=== PATIENT | female | born 1970 | race Caucasian/White ===

== ENCOUNTER 2017-05-17 07:28 | Day surgery (SDC) | payer OTHER ==
[~2017-05-17 07:28] MED LIST: BRIMONIDINE 0.2% OPHTH DROPS 5 ML OPTH ONE; BSS/LIDOCAINE/EPINEPHRINE 1 ML SYRINGE IO ONE; CHONDR SULF/HYALURONATE SYRINGE IO ONE; EPINEPHrine 1 MG/ML AMP IVP ONE; PHENYLEPHRINE 2.5% OPHTH 2 ML DROPS ONE; PROPARACAINE 0.5% OPHTH DROPS 15 ML OPTH ONE; TIMOLOL 0.5% OPHTH DROPS OPTH ONE; TRIAMCIN/MOXIFLOX/VANCO 1 ML VIAL IO ONE
[2017-05-17 07:52] LABS: HCG UR QUAL NEGATIVE
[2017-05-17] MEDS ORDERED: KETOROLAC 0.45% OPHTH DROPS OPTH ONE (08:00)
[2017-05-17] MEDS ORDERED: CYCLOPENTOLATE 1% OPHTH DROPS 2 ML OPTH ONE (08:00)
[2017-05-17] MEDS ORDERED: PROPARACAINE 0.5% OPHTH DROPS 15 ML OPTH ONE ×2 (08:00→08:27)
[2017-05-17] MEDS ORDERED: PHENYLEPHRINE 2.5% OPHTH 2 ML DROPS OPTH ONE (08:00)
[2017-05-17] MEDS ORDERED: LACTATED RINGERS 500 ML IV ONE (08:01)
[2017-05-17] MEDS ORDERED: EPINEPHrine 1 MG/ML AMP IVP ONE (08:26)
[2017-05-17] MEDS ORDERED: BRIMONIDINE 0.2% OPHTH DROPS 5 ML OPTH ONE (08:26)
[2017-05-17] MEDS ORDERED: levoFLOXacin 0.5% OPHTH DROPS 5 ML RIGHTEYE ONE (08:27)
[2017-05-17] MEDS ORDERED: TRIAMCIN/MOXIFLOX/VANCO 1 ML VIAL IO ONE ×2 (08:27)
[2017-05-17] MEDS ORDERED: TIMOLOL 0.5% OPHTH DROPS OPTH ONE (08:27)
[2017-05-17] MEDS ORDERED: CHONDR SULF/HYALURONATE SYRINGE IO ONE (08:27)
[2017-05-17] MEDS ORDERED: BSS/LIDOCAINE/EPINEPHRINE 1 ML SYRINGE IO ONE ×2 (08:27)
[2017-05-17] MEDS ORDERED: MIDAZOLAM 2 MG/2 ML VIAL IVP ONE (08:30)
[2017-05-17 08:59] VITALS: BP 143/82
--- NOTE | 2017-05-21 07:35 | OPERATIVE REPORT ---
DATE OF SURGERY: 05/17/2017 00:00:00 PREOPERATIVE DIAGNOSIS: Visually significant cataract, right eye; cataract surgery was performed on the left eye on 11 May 2016. POSTOPERATIVE DIAGNOSIS: Visually significant cataract, right eye; cataract surgery was performed on the left eye on 11 May 2016. PROCEDURE: Phacoemulsification and posterior chamber intraorbital lens implant, right eye. SURGEON: Lalit Cassidy MD ANESTHESIA: Monitored anesthesia care. COMPLICATIONS: None. OPERATIVE INDICATIONS: This is a 46-year-old woman with progressive vision loss in the right eye due to 2+ posterior subcapsular cataract. Best corrected visual acuity was 20/50 in the right eye. INDICATIONS FOR SURGERY: Overall decrease in vision, difficulty seeing words on a computer screen, d ifficulty reading; difficulty seeing words, closed captions, or game scores on TV. Difficulty seeing street signs, difficulty driving in low light or at night, difficulty driving at night because of he adlights from other vehicles, difficulty with glare of bright lights in any situation, difficulty tra cking a golf ball, and decreased acuity with firearms. She was consented at length concerning the ris ks and benefits of cataract surgery, after which she expressed a desire to proceed with surgery. OPERATIVE PROCEDURE: The patient was taken into OR #2 and placed under monitored anesthesia care. A surgical time-out was conducted, confirming the correct patient, correct procedure, and correct surgi dale site. She was given topical anesthesia and then prepped with baby shampoo only because she has an ALLERGY TO BETADINE. She was also given pre- and postoperative drops of Quixin to help sterilize th e eye. The eye was entered at the 12- and 9-o'clock positions. Intracameral shugarcaine was injected into th e anterior chamber, followed by Viscoat. A continuous tear curvilinear capsulorrhexis was performed. The nucleus was hydrodissected and phacoemulsified. The cortex was evacuated using automated and infu viola aspiration. Provisc was injected into the capsular bag, and a 22.0-diopter intraocular lens was inserted into the bag. Approximately 0.7 mL of a mixture of triamcinolone, moxifloxacin, and vancomy acosta was injected subconjunctivally in the superior quadrant for infection and inflammation prophylaxi s. I/A was used to evacuate the viscoelastic materials. The eye was inflated to physiologic pressur e using a balanced salt solution and found to be watertight. The patient was taken from the operating room in good condition and given postoperative instructions. JOB #: [id number] EXT JOB #:[id number]
== END 2017-05-17 07:29 | disposition home or self-care (01) ==
LOC: SDS 07:28
PROVIDERS: ATTEND Ophthalmology
PROC: 08RJ3JZ Replacement of Right Lens with Synthetic Substitute, Percutaneous Approach (ICD-10-PCS; principal; 2017-05-17 08:30)
DX: H25.041 Posterior subcapsular polar age-related cataract, right eye (principal); I10 Essential (primary) hypertension; E03.9 Hypothyroidism, unspecified; Z82.49 Family history of ischemic heart disease and other diseases of the circulatory system; Z83.3 Family history of diabetes mellitus; Z98.42 Cataract extraction status, left eye; Z96.1 Presence of intraocular lens
CPT/HCPCS: 66984; 81025; A9270; V2632

== ENCOUNTER 2018-01-22 16:50 | Emergency (ER) | payer OTHER ==
[2018-01-22] MEDS ORDERED: oxyCOD/ACETAMIN 5 MG/325 MG TABLET PO STA (17:38)
--- NOTE | 2018-01-22 18:11 | ED Physician Documentation ---
History of Present Illness - Stated complaint Stated Complaint: FOOT PAIN UP TO KNEE - Chief complaint Chief Complaint: Ext Problem - Additonal information Additional information: in heels this AM rolled her foot pain primarily to mid foot radiates up her leg no had neck injury no blood thinners denies preg Review of Systems : denies: Now EGA Musculoskeletal: reports: Pain with weight bearing PD PAST MEDICAL HISTORY - Past Medical History Past Medical History: Yes Cardiovascular: Hypertension Respiratory: None Endocrine/Autoimmune: HyPOthyroidism GI: GERD : None HEENT: None Psych: None Musculoskeletal: None Derm: None - Past Surgical History 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 - Present Medications Home Medications: Ambulatory Orders Medication Instructions Recorded Confirmed Lisinopril 10 mg PO DAILY 05/11/16 01/22/18 Ibuprofen [Motrin] 400 mg PO Q6H PRN #20 tablet 01/22/18 Oxycodone HCl/Acetaminophen 1 each PO Q6HR PRN #6 tablet 01/22/18 [Percocet 5-325 mg Tablet] - Allergies Allergies/Adverse Reactions: Allergies Allergy/AdvReac Type Severity Reaction Status Date / Time No Known Drug Allergies Allergy Verified 01/22/18 17:11 - Social History Does the pt smoke?: No Smoking Status: Never smoker Does the pt drink ETOH?: No Does the pt have substance abuse?: No - Immunizations Immunizations are current?: Yes PD ED PE NORMAL - Vitals Vital signs reviewed: Yes - Free text exam Free text exam: RLE - knee NT, tib fib NT, ankle NT, achilles intact and NT, heel NT, TTP with swelling to mid foot luis base 2nd and 3rd MT, no base of 5th TTP, MSV intact Results - Vitals Vitals: Vital Signs - 24 hr 01/22/18 17:07 Temperature 36.2 C L Heart Rate 88 Respiratory 18 Rate Blood Pressure 136/79 H O2 Saturation 95 Oxygen O2 Source Room air - Rads (name of study) foot Radiology: See rad report (no acute) ankle Radiology: See rad report (no acute) PD MEDICAL DECISION MAKING - ED course ED course: no fx or dislocation seen on xray but mechanism and exam make me concerned for a Lis Franc type ST injury will have pt in M[place] and on crutches non weight bearing and refer to ortho for further eval and perhaps consideration of MRI if sx persist Departure - Departure Disposition: Home, Self Care Clinical Impression: Right foot sprain Qualifiers: Encounter type: initial encounter Qualified Code(s): S93.601A - Unspecified sprain of right foot, initial encounter Condition: Good Instructions: ED Sprain Foot, ED Crutch Walking Follow-Up: ALAINA TIAN [Primary Care Provider] - [facility] [Provider Group] Prescriptions: Oxycodone HCl/Acetaminophen [Percocet 5-325 mg Tablet] 1 each PO Q6HR PRN #6 tablet PRN Reason: Severe Pain Ibuprofen [Motrin] 400 mg PO Q6H PRN #20 tablet PRN Reason: Pain Comments: The xrays do not show any fractures or displaced bones But your exam has me concerned for a ligament injury called a LisFranc injury. I recommend that you not walk on that foot - use the crutches we gave you and do not bear weight. Then i have referred you to orthopedics for further evaluation and perhaps a MRI if the symptoms persist. Ice elevation and the MÓINCA wrap will help the swelling and pain. You can take motrin for mild to moderate pain. And I wrote for a small number of percocet for you to take as needed for severe pain - please try and limit your use of narcotics as much as possible Forms: Activity restrictions
--- NOTE | 2018-01-22 18:29 | XRAY Preliminary Report ---
Exam: XR FOOT 3 VIEW RT IMPRESSION: No fracture or subluxation. [facility] SITE ID: [id number]
--- NOTE | 2018-01-22 18:29 | XRAY Report ---
EXAM: RIGHT FOOT RADIOGRAPHY EXAM DATE: 01/22/2018 05:45 PM. CLINICAL HISTORY: High heels injury. Inversion injury. COMPARISON: None. TECHNIQUE: 3 views. FINDINGS: Bones: Normal. No fractures or bone lesions. Joints: Joint space and alignment appears satisfactory. Soft Tissues: There is a small plantar calcaneal spur. IMPRESSION: No fracture or subluxation. [facility] Referring Provider Line: [phone] SITE ID: [id number]
--- NOTE | 2018-01-22 18:30 | XRAY Report ---
EXAM: RIGHT ANKLE RADIOGRAPHY EXAM DATE: 01/22/2018 05:42 PM. CLINICAL HISTORY: Inversion injury to ankle. COMPARISON: None. TECHNIQUE: 3 views. FINDINGS: Bones: Normal. No fractures or bone lesions. Joints: Normal. No effusion. No subluxations. The ankle mortise is normally aligned. Soft Tissues: There is a small plantar calcaneal spur. There is lateral ankle soft tissue swelling. IMPRESSION: No fracture or subluxation. [facility] Referring Provider Line: [phone] SITE ID: [id number]
--- NOTE | 2018-01-22 18:30 | XRAY Preliminary Report ---
Exam: XR ANKLE 3 VIEW RT IMPRESSION: No fracture or subluxation. [facility] SITE ID: [id number]
[2018-01-22 19:27] VITALS: BP 128/74
== END 2018-01-22 19:26 | disposition home or self-care (01) ==
LOC: ED 16:50
DX: S93.601A Unspecified sprain of right foot, initial encounter (principal); W19.XXXA Unspecified fall, initial encounter; Y92.89 Other specified places as the place of occurrence of the external cause; I10 Essential (primary) hypertension; E03.9 Hypothyroidism, unspecified
CPT/HCPCS: 73610; 73630; 99283; A9270

== ENCOUNTER 2018-11-05 01:02 | Outpatient (CLI) | payer OTHER | END 2018-11-05 01:03 | disposition critical access hospital (66) | LOC: EMS 01:02 | PROVIDERS: ATTEND Surgery | DX: R10.9 Unspecified abdominal pain (principal); R11.0 Nausea; R61 Generalized hyperhidrosis | CPT/HCPCS: A0425; A0427 ==

== ENCOUNTER 2018-11-05 01:24 | Emergency (ER) | payer OTHER ==
--- NOTE | 2018-11-05 01:31 | ED Physician Documentation ---
PD HPI ABD PAIN - Stated complaint Stated Complaint: ABD PAIN - History obtained from History obtained from: Patient, Family, EMS - History of Present Illness Timing - onset: Enter time (2299), Today Timing - duration: Hours Timing - details: Abrupt onset, Still present Pain level max: 10 Pain level now: 2 Quality: Sharp, Pain Location: Epigastric, LLQ Radiation: Left flank Improved by: BM Worsened by: Palpation Associated symptoms: Nausea, Diarrhea, Near syncope / syncope, Other (diaphoresis) Similar symptoms before: Has not had sx before Recently seen: Not recently seen - Additional information Additional information: Previously well 48-year-old female went out to dinner last night with her to a restaurant serving spicy food. She states that they went to bed about 10:30 at night about 11:00 at night she woke up with epigastric pain and diaphoresis. She had some pain in her left lower quadrant associated with this as well. She felt that this was from something that she ate and felt that she might improve with the use of a bowel movement. She went to the bathroom she was unable to produce any stool she became diaphoretic and describes some numbness to her extremities. She had some improvement her pain was able to get back to bed for about 15 minutes and had recurrence of her pain. She was eventually able to get to the bathroom and have a bowel movement and felt that following that about 20 minutes after she was having some improvement in her pain. She had dramatic diaphoresis associated with this and numbness to her upper and lower extremities and she became concerned that she may be having a heart attack and called the ambulance. At the time the medics arrived her pain was improved. Review of Systems Constitutional: reports: Sweats. denies: Fever, Chills Eyes: denies: Decreased vision Ears: denies: Ear pain Nose: denies: Rhinorrhea / runny nose, Congestion Throat: denies: Sore throat Cardiac: denies: Chest pain / pressure, Palpitations, Pedal edema, Calf pain Respiratory: denies: Dyspnea, Cough GI: reports: Abdominal Pain, Nausea, Diarrhea : denies: Dysuria, Frequency Skin: denies: Rash Musculoskeletal: denies: Neck pain, Back pain, Extremity pain Neurologic: denies: Generalized weakness, Focal weakness, Numbness PD PAST MEDICAL HISTORY - Past Medical History Cardiovascular: Hypertension Respiratory: None Endocrine/Autoimmune: HyPOthyroidism GI: GERD : None HEENT: None Psych: None Musculoskeletal: None Derm: None - Past Surgical History 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 - Present Medications Home Medications: Ambulatory Orders Medication Instructions Recorded Confirmed RX: Lisinopril 10 mg PO DAILY 05/11/16 01/22/18 Ibuprofen [Motrin] 400 mg PO Q6H PRN #20 tablet 01/22/18 RX: HYDROcod/ACETAM 5/325 [Karthaus 1 ea PO Q6H PRN #8 tablet 01/22/18 5/325] - Allergies Allergies/Adverse Reactions: Allergies Allergy/AdvReac Type Severity Reaction Status Date / Time No Known Drug Allergies Allergy Verified 11/05/18 01:34 - Social History Does the pt smoke?: No Smoking Status: Never smoker Does the pt drink ETOH?: No Does the pt have substance abuse?: No - Immunizations Immunizations are current?: Yes PD ED PE NORMAL - Vitals Vital signs reviewed: Yes (hypertensive ) - General General: Alert and oriented X 3, No acute distress, Well developed/nourished - HEENT HEENT: Atraumatic, PERRL, EOMI - Neck Neck: Supple, no meningeal sign, No bony TTP, No adenopathy - Cardiac Cardiac: RRR, No murmur - Respiratory Respiratory: No respiratory distress, Clear bilaterally - Abdomen Abdomen: Soft, Other (mild left lower quadrant tenderness without gaurding or rebound ) - Back Back: No CVA TTP, No spinal TTP - Derm Derm: Normal color, Warm and dry, No rash - Extremities Extremities: No deformity, No edema, No calf tenderness / cord - Neuro Neuro: Alert and oriented X 3, mother superior 2-12 intact, No motor deficit, No sensory deficit, Normal speech Eye Opening: Spontaneous Motor: Obeys Commands Verbal: Oriented GCS Score: 15 - Psych Psych: Normal mood, Normal affect Results - Vitals Vitals: Vital Signs - 24 hr 11/05/18 11/05/18 11/05/18 01:31 01:48 02:13 Temperature 36.5 C Heart Rate 80 82 77 Respiratory 18 18 18 Rate Blood Pressure 144/110 H 141/83 H 104/60 O2 Saturation 97 100 97 11/05/18 11/05/18 11/05/18 02:32 02:57 03:06 Temperature Heart Rate 83 80 Respiratory 17 17 17 Rate Blood Pressure 111/72 124/74 O2 Saturation 96 98 Oxygen O2 Source Room air - EKG (time done) 0131 Rate: Rate (enter#) (73) Rhythm: NSR Intervals: RBBB Compare to prior EKG: Old EKG unavailable Computer interpretation: Agree with computer - Labs Labs: Laboratory Tests 11/05/18 11/05/18 11/05/18 01:36 01:36 01:36 WBC 7.1 RBC 4.47 Hgb 14.0 Hct 39.9 MCV 89.1 MCH 31.3 H MCHC 35.1 RDW 13.0 Plt Count 141 MPV 9.1 Neut # (Auto) 5.5 Lymph # (Auto) 1.1 L Summit # (Auto) 0.3 Eos # (Auto) 0.1 Baso # (Auto) 0.1 Absolute Nucleated RBC 0.00 Nucleated RBC % 0.0 Sodium 136 Potassium 3.2 L Chloride 103 Carbon Dioxide 24 Anion Gap 9.0 BUN 14 Creatinine 0.5 Estimated GFR (MDRD) 133 Glucose 138 H Calcium 8.7 Total Bilirubin 0.7 AST 67 H ALT 101 H Alkaline Phosphatase 71 Troponin I < 0.04 Total Protein 7.5 Albumin 4.0 Globulin 3.5 Albumin/Globulin Ratio 1.1 Lipase 29 Urine Color Urine Clarity Urine pH Ur Specific Comins Urine Protein Urine Glucose (UA) Urine Ketones Urine Occult Blood Urine Nitrite Urine Bilirubin Urine Urobilinogen Ur Leukocyte Esterase Ur Microscopic Review Urine Culture Comments Urine HCG, Qual 11/05/18 02:44 WBC RBC Hgb Hct MCV MCH MCHC RDW Plt Count MPV Neut # (Auto) Lymph # (Auto) Summit # (Auto) Eos # (Auto) Baso # (Auto) Absolute Nucleated RBC Nucleated RBC % Sodium Potassium Chloride Carbon Dioxide Anion Gap BUN Creatinine Estimated GFR (MDRD) Glucose Calcium Total Bilirubin AST ALT Alkaline Phosphatase Troponin I Total Protein Albumin Globulin Albumin/Globulin Ratio Lipase Urine Color DARK YELLOW Urine Clarity CLEAR Urine pH 5.5 Ur Specific Comins 1.015 Urine Protein NEGATIVE Urine Glucose (UA) NEGATIVE Urine Ketones 15 H Urine Occult Blood NEGATIVE Urine Nitrite NEGATIVE Urine Bilirubin NEGATIVE Urine Urobilinogen 0.2 (NORMAL) Ur Leukocyte Esterase NEGATIVE Ur Microscopic Review NOT INDICATED Urine Culture Comments NOT INDICATED Urine HCG, Qual NEGATIVE - Rads (name of study) CT abd/pel without Radiology: Prelim report reviewed (Impression: 1. No urolithiasis seen.2 Fatty liver and spleen megaly. 3 Right ovarian cyst measuring 5.5 cm. 4. No diverticulitis or appendicitis identified.), EMP read indepedently, See rad report Procedures - Bedside sono Bedside sono by EMP: With use of bedside ultrasound the left kidney is imaged it is sonographically nontender and there is questionable evidence of hydronephrosis. PD MEDICAL DECISION MAKING - ED course Complexity details: reviewed old records, reviewed results, re-evaluated patient, considered differential, d/w patient, d/w family ED course: 48-year-old female with a dramatic episode of severe pain associated with diaphoresis and nausea has had a resolution of her pain and undulation of her pain. She did eat at a restaurant with extra spices and the suspicion is she did not tolerate this on her intestine. Expectation is spontaneous and complete resolution. Departure - Departure Disposition: 01 Home, Self Care Clinical Impression: Gastroenteritis Condition: Stable Instructions: ED Gastroenteritis Non Infec Follow-Up: ALAINA TIAN [Primary Care Provider] - Discharge Date/Time: 11/05/18 03:18
[2018-11-05 01:46] LABS: BASOPHILS # (AUTO) 0.1 10^3/uL (0.0-0.1); BASOPHILS % (AUTO) 0.8 %; EOSINOPHILS # (AUTO) 0.1 10^3/uL (0.0-0.7); EOSINOPHILS % (AUTO) 1.8 %; LYMPHOCYTES # (AUTO) 1.1 10^3/uL (1.5-3.5); MEAN CORPUSCULAR HEMOGLOBIN 31.3 pg (27.0-31.0); MEAN CORPUSCULAR HGB CONC 35.1 g/dL (32.0-36.0); MEAN CORPUSCULAR VOLUME 89.1 fL (81.0-99.0); MEAN PLATELET VOLUME 9.1 fL (7.9-10.8); MONOCYTES # (AUTO) 0.3 10^3/uL (0.0-1.0); MONOCYTES % (AUTO) 3.6 %; NEUTROPHILS # (AUTO) 5.5 10^3/uL (1.5-6.6); NEUTROPHILS % (AUTO) 77.8 %; PLT - PLATELET COUNT 141 10^3/uL (130-450); RED BLOOD COUNT 4.47 10^6/uL (4.20-5.40); WHITE BLOOD COUNT 7.1 x10^3/uL (4.8-10.8)
[2018-11-05 01:55] LABS: ALBUMIN/GLOBULIN RATIO 1.1 (1.0-2.2); BILIRUBIN,TOTAL 0.7 mg/dL (0.2-1.0); CALCIUM 8.7 mg/dL (8.5-10.3); CREATININE 0.5 mg/dL (0.4-1.0); TOTAL PROTEIN 7.5 g/dL (6.7-8.2)
--- NOTE | 2018-11-05 02:27 | CT Report ---
Reason: llq pain Procedure Date: 11/05/2018 Accession Number: [id number] / [id number] Procedure: CT - Abdomen/Pelvis W/O CPT Code: FULL RESULT: EXAM: CT ABDOMEN AND PELVIS (CT KUB) EXAM DATE: 11/05/2018 02:13 AM. CLINICAL HISTORY: Left-sided pain. COMPARISONS: None. TECHNIQUE: Routine axial helical CT imaging was performed through the abdomen and pelvis without IV contrast. Reconstructions: Coronal and sagittal. In accordance with CT protocol optimization, one or more of the following dose reduction techniques were utilized for this exam: automated exposure control, adjustment of mA and/or KV based on patient size, or use of iterative reconstructive technique. FINDINGS: Lung Bases: Unremarkable. Right Kidney/Ureter: No stones, hydronephrosis, or hydroureter. No perinephric fat stranding. Left Kidney/Ureter: No stones, hydronephrosis, or hydroureter. No perinephric fat stranding. Other Solid Organs: Fatty liver. Splenomegaly measuring 16.5 cm. Pancreas and adrenals are unremarkable. Gallbladder/Bile Ducts: Unremarkable. Peritoneal Cavity: No bowel obstruction seen. No diverticulitis. No free air or free fluid. No lymphadenopathy. Appendix appears normal. Pelvic Organs: Right ovarian cyst measuring 5.5 cm. Visualized pelvic organs are otherwise unremarkable. Vasculature: Unremarkable. Other: Degenerative changes in the spine with grade 1 degenerative spondylolisthesis at L5-S1. Spinal stenosis. 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 IMPRESSION: 1. No urolithiasis seen. 2. Fatty liver and splenomegaly. 3. Right ovarian cyst measuring 5.5 cm. 4. No diverticulitis or appendicitis identified. [facility]
[2018-11-05] MEDS ORDERED: POTASSIUM BICARB 25 MEQ TABLET PO STA (02:29)
[2018-11-05 02:48] LABS: BILIRUBIN,URINE NEGATIVE (NEGATIVE); GLUCOSE, URINE (UA) NEGATIVE (NEGATIVE); KETONES,URINE (UA) 15 mg/dL (NEGATIVE); LEUKOCYTE ESTERASE, URINE NEGATIVE (NEGATIVE); NITRITE,URINE NEGATIVE (NEGATIVE); OCCULT BLOOD,URINE NEGATIVE (NEGATIVE); PH,URINE 5.5 PH (5.0-7.5); PROTEIN,URINE NEGATIVE (NEGATIVE); UROBILINOGEN,URINE 0.2 (NORMAL) E.U./dL (NORMAL)
[2018-11-05 02:50] LABS: CLARITY,URINE CLEAR (CLEAR)
[2018-11-05 02:53] LABS: HCG UR QUAL NEGATIVE
[2018-11-05 02:57] VITALS: BP 124/74
[2018-11-05] MEDS ORDERED: ONDANSETRON ODT 4 MG Prepack 2 TL PRN (03:00)
== END 2018-11-05 03:18 | disposition home or self-care (01) ==
LOC: EDUNIT# → ED 01:24
DX: K52.9 Noninfective gastroenteritis and colitis, unspecified (principal); I45.10 Unspecified right bundle-branch block; I10 Essential (primary) hypertension; E03.9 Hypothyroidism, unspecified
CPT/HCPCS: 36415; 74176; 80053; 81003; 81025; 83690; 84484; 85025; 93005; 99283; 99284; A9270; 81001; 87086

== ENCOUNTER 2020-07-30 11:26 | Outpatient (CLI) | payer OTHER ==
[2020-07-30 12:21] VITALS: BP 133/88
--- NOTE | 2020-07-30 12:21 | SLEEP CARE CONSULTATION ---
Information from patient questionnaire entered by Gio Pacheco. I have reviewed and concur with the information entered by Gio Pacheco. This document represents the service I personally performed and the decisions made by me, Ophelia Retana ARNP. History of Present Illness Service Date and Time: 07/30/2020 1126 Reason for Visit: New patient Chief Complaint: reports: Unrefreshed sleep, Snoring, Excessive daytime sleepiness, Fatigue, Frequent awakenings at night (Fitbit showing awake a lot), Other (Bariatric surgeon wanted this: for unrefreshed sleep and fatigue). denies: Insomnia, Observed pauses in breathing Date of Onset: 10 plus years Usual bedtime: 10:00 PM; weekends varies 11PM-1AM Time it takes to fall asleep: seconds Snores at night: Yes Observed to quit breathing while asleep: No Sleeps alone due to snoring: No Number of times waking at night: 2-3 Reasons for waking at night: reports: Bathroom, Other (Just turning over sometimes). denies: Choking, Snoring, Gasping for air Toss, Turn, or Twitch while sleeping: Yes Recalls having dreams: Yes Usually gets out of bed at: 6 AM; weekends 1030 or 1100 Feels refreshed in the morning: Yes (sometimes; 1/4 of time) Morning headache: Yes (sometimes; sinus related 2 a month) Sleepy or fatigued during the day: Yes (sometimes) Ever fallen asleep while driving: No Takes day naps: Yes (2 a month, 2-3 hours) Dreams during day naps: Yes Prior sleep studies: No (In [place], [place], about 20 years ago) Additional HPI information: I had the pleasure of seeing JOSH PABLO today regarding the possibility of her having a sleep disorder. Her current complaints are unrefreshed sleep and fatigue. She had a sleep study over 20 years ago but she never heard anything back from it and was never told she had sleep apnea. She was recently diagnosed with diabetes. She is endeavouring to have bariatric surgery and was sent here for evaluation of sleep disordered breathing prior to surgery. She is 45 pounds heavier since her last study. She does snore loudly according to her but he has not observed pauses in breathing. She wakes up 2-3 times a night. She states a quarter of the time she will wake up rested but otherwise has unrefreshed sleep and daily fatigue. She states both of her parents snore but neither has been diagnosed with sleep apnea. - Parasomnia Symptoms Ever been unable to move upon waking from sleep: No Walks in sleep: No Talks in sleep: No Ever acted out dreams in sleep: No Ever felt weak in the knees when startled or emotional: Yes Bothered by creepy, crawly, restless sensations in legs: No Problems with memory or concentration: Yes (both) Subjective Initial Windsor Sleepiness Scale score: 17 (in 2020) Past Medical History Past Medical History: reports: Hypertension, Claustrophobia (not diagnoses), Diabetes (newly diagnosed), Hypothyroidism, Anxiety, Depression, GERD. 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 Patient is and lives in [place]. Have you smoked in the past 12 months: No Cigarettes per day (20/pack): 0 Quit date: 8 years ago Alcohol use: Yes Alcohol amount and frequency: 2-4 drinks monthly Caffeine use: Yes Caffeine amount and frequency: 2 daily Family History Family history of sleep disordered breathing: Yes (dad and mom) Family Hx Sleep Apnea: Mother: Snoring, Father: Snoring Allergies and Home Medications Drug allergies reviewed: Yes (NKDA) Home medication list reviewed: Yes Allergy and home medication list: Bupropion 150 mg daily Ergocalciferol 1.25 mg once a week Nexium daily Flonase, 1 spray each nostril daily Levothyroxine 137 mcg daily Lisinopril 10 mg daily Metformin 500 mg 2 x daily Naproxen 250 mg, prn Review of Systems Weight gain over past 5 years: 25 Weight loss over past 5 years: 0 Cardiovascular: reports: high blood pressure. denies: palpitations, chest pain, irregular heart rate or pulse Respiratory: denies: shortness of breath Gastrointestinal: reports: heartburn. denies: difficulty swallowing Neurological: denies: headaches, seizure, head trauma, speech dysfunction, gait or balance problems Psychiatric: reports: anxiety, depression, claustrophobia. denies: Attention Deficit Hyperactivity, mood disorder Ear/Nose/Throat: reports: sinus problems (seasonal), nose bleeds (occasionally if nasal passages get dry; 2 a year), wisdom teeth removed (upper teeth gone). denies: nasal congestion, dry mouth/throat, injury to nose, tonsillectomy Endocrine: reports: thyroid disease, sluggishness, too hot or cold Musculoskeletal: denies: muscle pain or cramping, mobility problems Immunologic: reports: allergies to food or environment (seasonal) Physical Exam Blood Pressure: 133/88 Cuff size: wrist Heart Rate: 75 O2 Saturation: 97 Height: 5 ft 5 in Weight: 288 lb Body Mass Index: 47.9 BMI Classification: Morbidly Obese Neck circumference: 17 (inches) HEENT: No craniofacial malformation Nostrils: patent to airflow Turbinates: normal Septum: midline Mouth and throat: narrow oropharynx Soft palate: normal Hard palate: normal Uvula: normal Uvula visualization: 50% Mallampati Class II Tongue: enlarged in size with teeth sinha on lateral edges Tonsils: 2+ Chin and jaw: normal size and position Neck: normal w/o lymphadenopathy or thyromegaly Heart: regular rate and rhythm Lungs: clear bilaterally Impression and Plan 1. Suspected Obstructive Sleep Apnea-Hypopnea Syndrome, as suggested by a history of loud and irregular snoring, morning headache, frequent awakening during the night, unrefreshed sleep, cognitive impairment, and excessive daytime sleepiness. I reviewed with patient that a narrow oropharynx and obesity are common predisposing factors for obstructive sleep apnea-hypopnea syndrome. I recommend proceeding to polysomnography to confirm the diagnosis and to assess severity. If the patient has significant sleep disordered breathing, a manual CPAP titration study will also be performed to find the optimal treatment pressure. I informed the patient of what the sleep studies involve and after some discussion, obtained agreement to proceed. The pathophysiology of obstructive sleep apnea-hypopnea syndrome was discussed with the patient and health risks of cardiovascular and cerebrovascular disease if not treated. AASM brochure for obstructive sleep apnea-hypopnea syndrome given and reviewed. Risks of drowsy driving discussed in detail and patient advised to avoid long distance driving and to pull out operator at the first sign of drowsiness. Patient agreed to plan. * Schedule polysomnography +- manual CPAP titration study. * Avoid long distance driving or driving when feeling sleepy. * Avoid alcohol, sedative and muscle relaxant around bedtime. * Continue attempts to lose weight. * Review instructions provided by trained office staff on how to prepare for the sleep study. * Return for follow-up after sleep study completed. Counseling Topics: Weight loss health impact Visit Type: In Office Time Spent with Patient (minutes): 38 Provider Statement: I spent 100% of the Face to Face Visit with the patient with greater than 50% spent counseling the patient and coordination of care.
== END 2020-07-30 11:27 | disposition home or self-care (01) ==
LOC: SC 11:26
PROVIDERS: ATTEND Nurse Practitioner Family
DX: R06.83 Snoring (principal); R51.9 Headache, unspecified; G47.8 Other sleep disorders; R41.89 Other symptoms and signs involving cognitive functions and awareness; G47.10 Hypersomnia, unspecified; E66.01 Morbid (severe) obesity due to excess calories; Z68.42 Body mass index [BMI] 45.0-49.9, adult
CPT/HCPCS: 99203; 99212

== ENCOUNTER 2020-09-02 20:36 | Outpatient (CLI) | payer OTHER | END 2020-09-02 20:37 | disposition home or self-care (01) | LOC: SC 20:36 | PROVIDERS: ATTEND Nurse Practitioner Family | DX: G47.33 Obstructive sleep apnea (adult) (pediatric) (principal); G47.61 Periodic limb movement disorder; E66.01 Morbid (severe) obesity due to excess calories; Z68.42 Body mass index [BMI] 45.0-49.9, adult | CPT/HCPCS: 95810 ==

== ENCOUNTER 2020-09-14 16:43 | Outpatient (CLI) | payer OTHER ==
--- NOTE | 2020-09-14 17:15 | SLEEP CARE CONSULTATION ---
Information from patient questionnaire entered by Gio Pacheco. I have reviewed and concur with the information entered by Gio Pacheco. This document represents the service I personally performed and the decisions made by me, Ophelia Retana ARNP. History of Present Illness Service Date and Time: 09/14/2020 164 Initial [place] Sleepiness Scale score: 17 (in 2020) Current [place] Sleepiness Scale score: 10 Additional HPI information: JOSH PABLO returns for follow up and results of the recently performed polysomnography. I explained the pathophysiology behind obstructive sleep apnea. We then spent quite a bit of time discussing different treatment options. For mild obstructive sleep apnea, surgery and oral appliance are alternatives to nasal CPAP therapy but in moderate or severe cases, nasal CPAP is the most effective and reliable treatment. Because apnea is primarily in supine position, then positional management therapy could be effective. Methods discussed such as positioning with pillows, using a T-shirt with tennis balls in the back, and shown commercial products that have a pillow format on back to prevent supine sleep. I reviewed the impact of weight changes on sleep apnea and strongly recommended losing weight. I explained how CPAP machine works with sample devices RespirConstruct Dreamstation and Upplication [id number] and what to expect when using the machine. Using CPAP every night in order to get used to it was emphasized. Patient advised to put CPAP mask on before getting into bed so as not to fall asleep without CPAP. To assist acclimation to CPAP use, it could also be used for a short time during day while reading or watching TV. The patient was instructed to call the CPAP supplier to discuss any mechanical problem that may occur. If the mask given is uncomfortable or is difficult to keep on through the night even with adjustment, contact the CPAP supplier as many will replace with another mask style if notified before 30 days. If snoring or perceives is not getting enough air or too much air from the machine, notify this office. [facility] patient education PAP tips and Non Pap treatment pamphlets reviewed and given to patient. Patient counseled not drink alcohol less than 4 hours before bedtime as it can increase snoring and apnea. Patient was cautioned about risks of drowsy driving until sleepiness symptoms resolve. Sleep Study - Results Type of Sleep Study: Polysomnography Prior sleep studies: No (In [place], [place], about 20 years ago) Polysomnography/Home Sleep Study results: IMPRESSION: The quality of the study is good. The patient had normal sleep efficiency. The sleep architecture was abnormal for sleep fragmentation and reduced amount of time spent in REM sleep.. Respiratory monitoring showed mild obstructive sleep apnea-hypopnea (AHI = 13.2) associated with frequent arousals, oxyhemoglobin desaturation and mild hypoxia (jessica oxygen saturation of 84%). The respiratory events occurred more frequently during supine sleep (supine AHI = 42.9; non-supine = 12.71). Snore was loud in intensity. There was moderate periodic leg movement of sleep contributing to the sleep fragmentation. Cardiac rhythm was normal sinus rhythm without significant arrhythmia. No abnormal behavior (parasomnia) observed during the night. Allergies and Home Medications Drug allergies reviewed: Yes (NKDA) Home medication list reviewed: Yes (no changes) Review of Systems Review of systems same as previous: Yes (no changes) Physical Exam Heart Rate: 82 O2 Saturation: 97 Height: 5 ft 5 in Weight: 288 lb Body Mass Index: 47.9 BMI Classification: Morbidly Obese Impression and Plan 1. Obstructive Sleep Apnea-Hypopnea Syndrome, mild, with lowest oxygen saturation of 84%. Obviously this is the cause of the patients symptoms of unrefreshed sleep, and excessive daytime sleepiness. Positive pressure therapy could benefit hypertension, diabetes, anxiety, depression and acid reflux. Patient would like to take some time to decide on type of therapy. She was given information as well as list of certified dentists in the area for an oral appliance. She was advised to check with her insurance as not all insurance companies will cover cost of an oral appliance. She was also given a list of DME suppliers to review if she decides to go with CPAP therapy. She will let us know her decision and then we can determine her follow up. Because the apnea is more severe supine, I instructed to avoid sleeping supine using pillow positioning. * Patient will review information on non-pap treatments and pap treatment and let our office know what therapy she decides upon. * continue to try to lose weight. * Avoid alcohol consumption near bedtime. * Avoid supine sleep * The patient is again cautioned about driving until sleepiness completely resolves. * Return once she has decided upon type of therapy she would like to try. Counseling Topics: Weight loss health impact Visit Type: In Office Time Spent with Patient (minutes): 23 Provider Statement: I spent 100% of the Face to Face Visit with the patient with greater than 50% spent counseling the patient and coordination of care.
== END 2020-09-14 16:44 | disposition home or self-care (01) ==
LOC: SC 16:43
PROVIDERS: ATTEND Nurse Practitioner Family
DX: G47.33 Obstructive sleep apnea (adult) (pediatric) (principal); E66.01 Morbid (severe) obesity due to excess calories; Z68.42 Body mass index [BMI] 45.0-49.9, adult
CPT/HCPCS: 99212; 99213